=== PATIENT | male | born 1970 | race Caucasian/White ===

== ENCOUNTER → 2024-01-03 | Emergency (ER) | payer SELFPAY ==
[~2024-01-03] VITALS: Ht 172.7 cm; Wt 81.8 kg
[2024-01-03 10:30] VITALS: BP 134/79; PULSE 62; RESP 18; TEMP 98.4; O2SAT 98
== END | disposition left against medical advice (07) ==
LOC: EMS 10:27
DX: R42 Dizziness and giddiness (principal); R53.81 Other malaise; Z53.21 Procedure and treatment not carried out due to patient leaving prior to being seen by health care provider
CPT/HCPCS: 82962; 93005